=== PATIENT | male | born 1965 | race Caucasian/White ===

== ENCOUNTER 2018-01-07 18:31 | Observation (INO) | payer BC ==
[~2018-01-07] VITALS: Ht 193 cm; Wt 142.9 kg
[~2018-01-07 18:31] MED LIST: NOHOMEMEDS
[2018-01-07 19:29] LABS: HEMOGLOBIN 17.5 G/DL (12.5-16.6); MCV 88.7 FL (86-99); PLATELET COUNT 172 K/uL (156-360); RBC DIS.WIDTH-CV 12.9 % (11.8-14.6); RBC DIS.WIDTH-SD 41.9 % (39-53); RED BLOOD COUNT 5.64 M/uL (4.00-5.50)
[2018-01-07 19:38] LABS: CHLORIDE 100 mEq/L (99-109); POTASSIUM 4.2 mEq/L (3.7-5.4); SODIUM 136 mEq/L (136-147)
[2018-01-07 19:39] LABS: GLUCOSE 102 mg/dL (70-99)
[2018-01-07 19:43] LABS: CREATININE 1.4 mg/dL (0.6-1.3); GFR ESTIMATE (CALCULATED) 56 mL/min/ (58.99-99999)
[2018-01-07 19:44] LABS: UREA NITROGEN (BUN) 14 mg/dL (9-23)
[2018-01-07 19:49] LABS: TROP-I INTERPRETATION NEGATIVE; TROPONIN-I < 0.01 ng/mL (0.0-0.30)
[2018-01-07] MEDS ORDERED: AMLODIPINE BESYL5 MG PO (20:22)
[2018-01-07] MEDS ORDERED: TAMSULOSIN HCL0.4 MG PO (20:22)
[2018-01-07 21:57] LABS: D-DIMER ELISA < 150.00 ng/mLDDU (<230)
[2018-01-08 01:24] LABS: BASE EXCESS 1.9 mEq/L (-3 to +3); BICARBONATE 25.7 mEq/L (22-26); CARBOXY HGB 1.8 % (0-5); COMMENTS - BLOOD GASES C+; DEVICE NC; METHEMOGLOBIN 1.2 % (0-1.5); O2 FLOW 2 L/MIN; PCO2 37 mm Hg (35-45); PO2 60 mm Hg (80-100); SITE LRADIAL; TOTAL RESP RATE 22 resp/min; pH 7.45 (7.35-7.45)
[2018-01-08 02:05] VITALS: BP 145/86
[2018-01-08 02:49] LABS: TROP-I INTERPRETATION NEGATIVE; TROPONIN-I 0.01 ng/mL (0.0-0.30)
[2018-01-08 04:08] LABS: ALBUMIN 4.2 g/dL (3.2-4.8)
[2018-01-08 04:11] LABS: TOTAL PROTEIN 7.1 g/dL (6.4-8.3)
[2018-01-08 04:14] LABS: ALKALINE PHOSPHATASE 46 IU/L (3-129)
[2018-01-08 04:16] LABS: AST (GOT) 23 IU/L (2-34); DIRECT BILIRUBIN 0.4 mg/dL (0.0-0.3)
[2018-01-08 04:17] LABS: ALT (GPT) 27 IU/L (3-49)
[2018-01-08 04:50] VITALS: BP 134/68
[2018-01-08 08:52] VITALS: BP 135/89
[2018-01-08 09:25] LABS: TROP-I INTERPRETATION NEGATIVE; TROPONIN-I < 0.01 ng/mL (0.0-0.30)
[2018-01-08 09:44] LABS: CHLORIDE 104 MEQ/L (99-109); CREATININE 1.2 MG/DL (0.6-1.3); GFR ESTIMATE (CALCULATED) > 59 mL/min/ (58.99-99999); GLUCOSE 135 mg/dL (70-99); POTASSIUM 4.3 MEQ/L (3.7-5.4); SODIUM 137 MEQ/L (136-147); UREA NITROGEN (BUN) 16 mg/dL (9-23)
[2018-01-08 09:46] LABS: APPEARANCE SL.HAZY ((CLEAR)); BILIRUBIN NEGATIVE; BLOOD MODERATE; COLOR YELLOW ((YELLOW)); GLUCOSE (STRIP) NEGATIVE; KETONES 20; LEUKOCYTES NEGATIVE; NITRITE NEGATIVE; PROTEIN (STRIP) NEGATIVE; SPECIFIC GRAVITY 1.041 (1.000-1.030); UROBILINOGEN 0.2 MG/DL (0.2-1.0)
[2018-01-08 10:08] LABS: BACTERIA RARE /HPF; EPITHELIAL CELLS NONE SEEN /HPF; MUCUS 2+ /LPF; RED BLOOD CELLS 15-20 /HPF (0-5); UCUL ADDED? NO; WHITE BLOOD CELLS 0-5 /HPF (0-5)
[2018-01-08 11:55] VITALS: BP 131/74
[2018-01-08] MEDS ORDERED: BETAMETHASONE D50 G1 TP (12:03)
[2018-01-08 16:10] VITALS: BP 142/87
[2018-01-08 19:51] VITALS: BP 130/70
[2018-01-09 00:24] VITALS: BP 119/63
[2018-01-09 04:30] VITALS: BP 125/82
[2018-01-09 06:04] LABS: HEMATOCRIT 50.8 % (38.0-50.0); HEMOGLOBIN 17.6 G/DL (12.5-16.6); MCH 30.4 PG (29.0-34.0); MCHC 34.6 G/DL (30.0-36.0); MCV 87.9 FL (86-99); PLATELET COUNT 208 K/uL (156-360); RBC DIS.WIDTH-CV 12.6 % (11.8-14.6); RBC DIS.WIDTH-SD 40.9 % (39-53); RED BLOOD COUNT 5.78 M/uL (4.00-5.50); WHITE BLOOD COUNT 15.3 K/uL (4.1-10.2)
[2018-01-09 06:18] LABS: CHLORIDE 101 MEQ/L (99-109); CREATININE 1.1 MG/DL (0.6-1.3); GFR ESTIMATE (CALCULATED) > 59 mL/min/ (58.99-99999); GLUCOSE 161 mg/dL (70-99); POTASSIUM 4.6 MEQ/L (3.7-5.4); SODIUM 137 MEQ/L (136-147); UREA NITROGEN (BUN) 20 mg/dL (9-23)
[2018-01-09 08:46] VITALS: BP 117/70
[2018-01-09] MEDS ORDERED: ADVAIR HFA120 INHALA IH (10:52)
[2018-01-09] MEDS ORDERED: Robitussin DM PO (10:55)
[2018-01-09] MEDS ORDERED: DELTASONE20 M1 PO (10:55)
[2018-01-09] MEDS ORDERED: OSELTAMIVIR PHO75 MG PO (11:59)
[2018-01-09 12:51] VITALS: BP 115/68
== END 2018-01-09 13:18 | disposition home or self-care (01) ==
LOC: EME 18:31 → 5WEST 01-08 00:48 → EDOF 01-08 00:48 → ENRESERV 01-08 00:53 → 5WEST 01-08 01:48
PROVIDERS: Emergency Medicine; Hospitalist; Physician Assistant
DX: J96.01 Acute respiratory failure with hypoxia (principal); J10.1 Influenza due to other identified influenza virus with other respiratory manifestations; F17.210 Nicotine dependence, cigarettes, uncomplicated; N28.9 Disorder of kidney and ureter, unspecified; I10 Essential (primary) hypertension; Z85.46 Personal history of malignant neoplasm of prostate; Z92.21 Personal history of antineoplastic chemotherapy; E66.01 Morbid (severe) obesity due to excess calories; Z68.38 Body mass index [BMI] 38.0-38.9, adult; Z83.3 Family history of diabetes mellitus; B97.89 Other viral agents as the cause of diseases classified elsewhere
CPT/HCPCS: 36600; 71046; 71275; 74176; 80048; 80076; 81003; 82803; 83880; 84443; 84484; 85027; 85379; 87502; 87651 90; 93005; 93306; 93970; 94640; 94640 76; 94799; 99202; 99281; 99285; G0378; J1644; J1650; J2930; J7030; J7644